=== PATIENT | male | born 1960 | race Caucasian/White ===

== ENCOUNTER 2020-09-26 07:21 | Day surgery (SDC) | payer BC ==
[~2020-09-26 07:21] MED LIST: Sodium Chloride 0.9% 10 ML Syringe FLUSH PRN
[2020-09-26] MEDS ORDERED: Propofol 200 MG/20 ML SDV IV ONE (07:22)
[2020-09-26] MEDS ORDERED: Lidocaine 1% PF 2 ML SDV INJECT ONE (07:22)
[2020-09-26] MEDS ORDERED: Lactated Ringers 1,000 ML IV SCH (07:30)
[2020-09-26] MEDS ORDERED: Sodium Chloride 0.9% 10 ML Syringe FLUSH PRN (07:30)
[2020-09-26] MEDS: Lactated Ringers 1,000 ML IV SCH (08:34)
[2020-09-26] MEDS: Simethicone Drops 40 MG/0.6 ML 30 ML Bottle ONE (09:03)
--- NOTE | 2020-09-26 09:14 | PCM.OPNOTE ---
- General Post-Op/Procedure Note Date of Surgery/Procedure: 09/26/20 Operative Procedure(s): c scope Findings: nl exam Pre Op Diagnosis: colon cancer screening Post-Op Diagnosis: Same Anesthesia Technique: MAC Primary Surgeon: Scottie Sainz Anesthesia Provider: Lj Cardoza Pathology: none Complications: None Condition: Good Free Text/Narrative:: see dictation #[id number]
--- NOTE | 2020-09-26 11:20 | OR ---
DATE OF OPERATION: 09/26/2020 SURGEON: Scottie Sainz MD PROCEDURE PERFORMED: Colonoscopy. PREOPERATIVE DIAGNOSIS: Need for colon cancer screening. POSTOPERATIVE DIAGNOSIS: Normal exam. INDICATIONS FOR PROCEDURE: This is a 60-year-old white male who presents for screening colonoscopy. He was offered and accepted same. DESCRIPTION OF OPERATION: After an excellent IV sedation was administered, digital rectal exam was performed. No marked abnormality was noted. Flexible colonoscope was inserted and advanced to cecum. Prep was excellent. The following findings were noted. Ascending colon, unremarkable. Transverse colon, unremarkable. Descending colon, unremarkable. Sigmoid and rectum, unremarkable. Colon was deflated. Scope was removed. Patient tolerated the procedure well, was taken to recovery room. Results will be sent to the patient via latter. /[id number] /MODL
== END 2020-09-26 10:28 | disposition home or self-care (01) ==
LOC: FB.SDS 07:21
PROVIDERS: ATTEND Surgery
DX: Z12.11 Encounter for screening for malignant neoplasm of colon (principal); I48.0 Paroxysmal atrial fibrillation; G47.33 Obstructive sleep apnea (adult) (pediatric); Z01.812 Encounter for preprocedural laboratory examination; Z20.822 Contact with and (suspected) exposure to COVID-19; Z88.8 Allergy status to other drugs, medicaments and biological substances; Z79.899 Other long term (current) drug therapy; Z90.49 Acquired absence of other specified parts of digestive tract
CPT/HCPCS: 00812-QZ; A9270-GY; J2001; J2704; J7120; U0002